=== PATIENT | male | born 1950 | race Caucasian/White ===

== ENCOUNTER 2018-11-04 22:17 | Emergency (ER) | payer BC, MEDICARE ==
[2018-11-04] MEDS ORDERED: PROPARACAINE HCL OPTH 15ML BTL OPTH ONE (22:36)
--- NOTE | 2018-11-04 23:25 | Emergency Department Record ---
History of Present Illness - General Chief complaint: Eye Problem Stated complaint: RT EYE FOREIGN OBJECT Time Seen by Provider: 11/04/18 23:10 Mode of Arrival: Ambulatory - History of Present Illness Initial comments: The patient was cutting wood earlier today around [place] when he felt some g into his right eye. Driving home for 3 hours it bothered him and now it is worse. His flushed it and thought she saw something flush out along with mucous. He has no headache, nausea, diabetes, or history of glaucoma. Onset/Timin -: Hour(s) Onset Description: Sudden Location: Right eye Place: Street/outdoors If Injury: None Severity scale (1-10): 4 If Pain, Quality: Aching Associated Symptoms: None Treatments Prior to Arrival: Eyepatch, Irrigated eye, Other - Related Data Visual acuity (L) = 20/: 25 Visual acuity (R) = 20/: 30 With correction: Yes (reading gl) Patient Tetanus UTD (within 5 yrs): (unsure) Home Medications Medication Instructions Recorded Confirmed Last Taken No Home Med [NO HOME MEDS] 11/04/18 11/04/18 Unknown Allergies Allergy/AdvReac Type Severity Reaction Status Date / Time No Known Drug Allergies Allergy Verified 11/04/18 22:25 Travel Screening - Travel/Exposure Within Last 30 Days Have you traveled within the last 30 days?: No - Travel Symptoms Symptom Screening: None Review of Systems Reviewed: No additional complaints except as noted below Constitutional: Reports: As per HPI. Denies: Chills, Fever, Malaise, Night sweats, Weakness, Weight change Eyes: Reports: As per HPI. Denies: Eye discharge, Eye pain, Photophobia, Vision change ENT: Reports: As per HPI. Denies: Congestion, Dental pain, Ear pain, Epistaxis, Hearing loss, Throat pain Respiratory: Reports: As per HPI. Denies: Cough, Dyspnea, Hemoptysis, Stridor, Wheezes Cardiovascular: Reports: As per HPI. Denies: Arrhythmia, Chest pain, Dyspnea on exertion, Edema, Murmurs, Orthopnea, Palpitations, Paroxysmal nocturnal dyspnea, Rheumatic Fever, Syncope Endocrine: Reports: As per HPI. Denies: Fatigue, Heat or cold intolerance, Polydipsia, Polyuria Gastrointestinal: Reports: As per HPI. Denies: Abdominal pain, Constipation, Diarrhea, Hematemesis, Hematochezia, Melena, Nausea, Vomiting Genitourinary: Reports: As per HPI. Denies: Dysuria, Frequency, Hematuria, Incontinence, Retention, Testicular pain, Testicular mass, Urgency Musculoskeletal: Reports: As per HPI. Denies: Arthralgia, Back pain, Gout, Joint swelling, Myalgia, Neck pain Skin: Reports: As per HPI. Denies: Bruising, Change in color, Change in hair/nails, Lesions, Pruritus, Rash Neurological: Reports: As per HPI. Denies: Abnormal gait, Confusion, Headache, Numbness, Paresthesias, Seizure, Tingling, Tremors, Vertigo, Weakness Psychiatric: Reports: As per HPI. Denies: Anxiety, Auditory hallucinations, Depression, Homicidal thoughts, Suicidal thoughts, Visual hallucinations Hematological/Lymphatic: Reports: As per HPI. 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 negative: Nystagmus Pupils: Normal accommodation With correction: Yes (reading gl) Image of Eyes: 1 - 1mm corneal abrasion with no FB seen on slit lamp; no flare cells, no FB beneath lids. - ENT ENT exam: Normal exam, Mucous membranes moist, Normal external ear exam, Normal orophraynx, TM's normal bilaterally Ear exam: Normal external inspection. negative: External canal tenderness Nasal Exam: Normal inspection. negative: Discharge, Sinus tenderness Mouth exam: Normal external inspection, Tongue normal Teeth exam: Normal inspection. negative: Dental caries Throat exam: Normal inspection. negative: Tonsillar erythema, Tonsillar exudate - Neck Neck exam: Normal inspection, Full ROM. negative: Lymphadenopathy, Meningismus, Tenderness - Respiratory Respiratory exam: Normal lung sounds bilaterally. negative: Accessory muscle use, Respiratory distress - Cardiovascular Cardiovascular Exam: Regular rate, Normal rhythm, Normal heart sounds - GI/Abdominal GI/Abdominal exam: Soft, Normal bowel sounds. negative: Tenderness - Rectal Rectal exam: Deferred - exam: Deferred - Extremities Extremities exam: Normal inspection, Full ROM, Normal capillary refill. negative: Tenderness - Back Back exam: Reports: Normal inspection, Full ROM. Denies: Muscle spasm, Rash noted, Tenderness - Neurological Neurological exam: Alert, CN II-XII intact, Normal gait, Oriented X3, Reflexes normal - Psychiatric Psychiatric exam: Normal affect, Normal mood - Skin Skin exam: Dry, Intact, Normal color, Warm Course Vital Signs 11/04/18 22:26 Temperature 98.6 F Pulse Rate 82 Respiratory 16 Rate Blood Pressure 134/81 Pulse Ox 96 - Reevaluation(s) Reevaluation #1: Patient has great relief with preparacaine. Slit lamp shows no FB but shallow ulcer at central cornea. No flare cells, no hyphema. 11/04/18 23:42 Medical Decision Making - Management Options MDM Management: Additional Work-up Planned (e.g. ADM/Transfer/OP Study) ( [facility] tomorrow.) Disposition Disposition: Discharge Clinical Impression: Corneal abrasion, right Qualifiers: Encounter type: initial encounter Qualified Code(s): S05.01XA - Injury of conjunctiva and corneal abrasion without foreign body, right eye, initial encounter Disposition: Home, Self-Care Condition: (1) Good Instructions: Corneal Abrasion (ED) Additional Instructions: Take 2 Gentak Eye drops twice daily to right eye. Do not rub eye. If needed take norco for pain, OR take tylenol alternated with ibuprofen as directed if needed for pain. [facility] Dr. Patel. Referrals: HUNTER PATEL [MEDICAL DOCTOR] - Quality - Quality Measures Quality Measures: N/A - Blood Pressure Screening Does Patient Have Any of the Following: No Blood Pressure Classification: Pre-Hypertensive BP Reading Systolic Measurement: 134 Diastolic Measurement: 81 Screening for High Blood Pressure: < Pre-Hypertensive BP, F/U Documented > [[id number]] Pre-Hypertensive Follow-up Interventions: Follow-up with rescreen every year.
[2018-11-04] MEDS ORDERED: GENTAMICIN OPTH OINT 3.5 GM TUBE OPTH ONE (23:30)
[2018-11-04] MEDS ORDERED: HYDROCODONE/APAP 5/325MG TABLET PO ONE (23:31)
[2018-11-04] MEDS ORDERED: EYE IRRIGATION SOLU. (SOD BOR/BORIC AC/H20/NACL) 118ML BTL OPTH ONE (23:32)
== END 2018-11-04 23:55 | disposition home or self-care (01) ==
LOC: ER 22:17
DX: S05.01XA Injury of conjunctiva and corneal abrasion without foreign body, right eye, initial encounter (principal); W22.8XXA Striking against or struck by other objects, initial encounter; Y93.H9 Activity, other involving exterior property and land maintenance, building and construction; Y92.89 Other specified places as the place of occurrence of the external cause
CPT/HCPCS: 99283